=== PATIENT | female | born 1995 | race Caucasian/White ===

== ENCOUNTER 2018-07-21 13:58 | Emergency (ER) | payer OTHER ==
[~2018-07-21] VITALS: Ht 162.6 cm; Wt 60.3 kg
[2018-07-21 14:02] VITALS: BP 137/81; Ht 162.6 cm; Wt 60.3 kg
== END 2018-07-21 16:08 | disposition home or self-care (01) ==
LOC: ED 13:58
DX: S93.402A Sprain of unspecified ligament of left ankle, initial encounter (principal); E11.9 Type 2 diabetes mellitus without complications; X58.XXXA Exposure to other specified factors, initial encounter; Y93.41 Activity, dancing; Y92.89 Other specified places as the place of occurrence of the external cause; Y99.8 Other external cause status

== ENCOUNTER 2019-02-07 13:47 | Emergency (ER) | payer OTHER ==
[~2019-02-07] VITALS: Ht 162.6 cm; Wt 65.8 kg
[2019-02-07 13:57] VITALS: Ht 162.6 cm; Wt 65.8 kg
[2019-02-07 14:50] VITALS: BP 109/84
== END 2019-02-07 14:50 | disposition home or self-care (01) ==
LOC: ED 13:47
DX: S93.402A Sprain of unspecified ligament of left ankle, initial encounter (principal); F41.9 Anxiety disorder, unspecified; E10.9 Type 1 diabetes mellitus without complications; W01.0XXA Fall on same level from slipping, tripping and stumbling without subsequent striking against object, initial encounter; Y93.89 Activity, other specified; Y92.89 Other specified places as the place of occurrence of the external cause; Y99.8 Other external cause status
CPT/HCPCS: Q0092

== ENCOUNTER 2019-03-27 21:02 | Emergency (ER) | payer OTHER ==
[~2019-03-27] VITALS: Ht 162.6 cm; Wt 64.1 kg
[2019-03-27 21:20] VITALS: Ht 162.6 cm; Wt 64.1 kg
[2019-03-27 22:03] VITALS: BP 136/90
== END 2019-03-27 22:03 | disposition home or self-care (01) ==
LOC: ED 21:02
DX: S30.860A Insect bite (nonvenomous) of lower back and pelvis, initial encounter (principal); S70.362A Insect bite (nonvenomous), left thigh, initial encounter; E10.8 Type 1 diabetes mellitus with unspecified complications; F41.9 Anxiety disorder, unspecified; W57.XXXA Bitten or stung by nonvenomous insect and other nonvenomous arthropods, initial encounter; Y93.89 Activity, other specified; Y92.89 Other specified places as the place of occurrence of the external cause; Y99.8 Other external cause status